=== PATIENT | female | born 1975 | race Caucasian/White ===

== ENCOUNTER 2018-10-23 08:11 | Observation (INO) | payer MEDICARE, OTHER ==
[2018-10-23] MEDS ORDERED: LIDOCAINE HCL 2% PF 100MG/5ML VIAL IJ ONE (08:48)
[2018-10-23] MEDS ORDERED: ROCURONIUM BROMIDE 10 MG/ML 5ML VIAL ONE (08:48)
[2018-10-23] MEDS ORDERED: FAMOTIDINE 20 MG/2 ML VIAL ONE ×2 (08:48→20:36)
[2018-10-23] MEDS ORDERED: PROMETHAZINE HCL 25 MG/ML VIAL ONE ×3 (08:48→20:58)
[2018-10-23] MEDS ORDERED: DEXAMETHASONE SODIUM PHOSPHATE 10 MG/ML VIAL ONE (08:48)
[2018-10-23] MEDS ORDERED: SEVOFLURANE 250 ML LIQUID IH ONE (08:48)
[2018-10-23] MEDS ORDERED: ESMOLOL HCL 100 MG/10 ML IV ONE (08:48)
[2018-10-23] MEDS ORDERED: FENTANYL CITRATE/PF 250 MCG/5 ML INJ. ONE (08:48)
[2018-10-23] MEDS ORDERED: SCOPOLAMINE HYDROBROMIDE 1.5MG/72HR PATCH TD ONE ×2 (08:48→09:19)
[2018-10-23] MEDS ORDERED: BUPIV. HCL 0.25% (2.5MG/ML)/EPI. (1:200,000) PF 30 ML VIAL IJ ONE (08:48)
[2018-10-23] MEDS ORDERED: SUGAMMADEX SODIUM 200 MG/2 ML VIAL IV ONE (08:48)
[2018-10-23] MEDS ORDERED: hydrALAZINE HCL 20 MG/1 ML ONE ×3 (08:48→16:03)
[2018-10-23] MEDS ORDERED: HYDROmorphone HCL/PF 2 MG/ML VIAL ONE ×2 (08:48→13:38)
[2018-10-23] MEDS ORDERED: LIDOCAINE HCL 1% PF 300MG/30ML VIAL ONE (08:48)
[2018-10-23] MEDS ORDERED: MIDAZOLAM HCL 2 MG/2 ML VIAL ONE (08:48)
[2018-10-23] MEDS ORDERED: LABETALOL HCL 20 MG/4 ML SYRINGE IV ONE (08:48)
[2018-10-23] MEDS ORDERED: ceFAZolin SODIUM 1 GM VIAL ONE (08:48)
[2018-10-23] MEDS ORDERED: ONDANSETRON HCL/PF 4 MG/ 2ML VIAL ONE ×4 (08:48→16:19)
[2018-10-23] MEDS ORDERED: SODIUM CHLORIDE IRRIG SOLUTION 3,000 ML IRRIG.SOLN IR ONE (08:48)
[2018-10-23] MEDS ORDERED: PROPOFOL 200 MG/20 ML VIAL IV ONE (08:48)
[2018-10-23] MEDS ORDERED: diphenhydrAMINE HCL 50 MG/ML VIAL IVP PRN (15:51)
[2018-10-23] MEDS ORDERED: MORPHINE SULFATE 10MG/0.5ML ORAL SOLN UD CUP PO PRN (15:51)
[2018-10-23] MEDS ORDERED: ONDANSETRON HCL/PF 4 MG/ 2ML VIAL IVP PRN (15:51)
[2018-10-23] MEDS ORDERED: hydrALAZINE HCL 20 MG/1 ML IVP ONE (16:02)
[2018-10-23] MEDS ORDERED: CARISOPRODOL 350 MG PO PRN (16:02)
[2018-10-23] MEDS ORDERED: 0.9 % SODIUM CHLORIDE 1,000 ML IV ONE ×2 (16:11→21:24)
[2018-10-23] MEDS: 0.9 % SODIUM CHLORIDE 1,000 ML IV SCH (16:11)
[2018-10-23] MEDS: KETOROLAC TROMETHAMINE 30 MG/1ML VIAL IVP PRN (16:18)
[2018-10-23] MEDS ORDERED: KETOROLAC TROMETHAMINE 30 MG/1ML VIAL ONE (16:19)
--- NOTE | 2018-10-23 16:26 | History and Physical Report ---
History of Present Illnes - History of Present Illness Reason for Visit: S/P Gastric Sleeve History of Present Illness: Patient is a 43-year-old female who has tried multiple diets and exercise programs with no success. She has struggled with her weight for many years but it has gotten worse due to her chronic pain and inability to work-out. Patient and surgeon decided to proceed with gastric sleeve procedure. Procedure went well- patient will be admitted and monitored s/p surgical intervention. Patient has been on a liquid diet prior to surgery so she is a risk of dehydration s/p surgery. She will be admitted for IV hydration to help hydrate patient until she is able to tolerate a sufficient oral intake, will treat pain with IV medication until patient is able to tolerate oral meds, IV antiemetics to help reduce episodes of nausea and/or vomiting. Patient will be monitored closely with blood pressures ranging 170s/120s, will give IV Hypertensive medication to get blood pressure to WNL. Pain medication will be given and see if this is cause of HTN as well. - Past Medical History Cardiac: HTN, Other (EF 55% on 08/20/18) Musculoskeletal: Chronic low back pain, Osteoarthritis (joint pain to knees, hips, and feet) Renal/: Other (PCOS, one functioning kidney) Endocrine: obesity - Past Surgical History Past Surgical History: Cholecystectomy, , Hernia Repair, Other (CTR), Tubal Ligation, Other (Back- Montoya rods) - Past Family History Mother Family History: Hyperlipidemia, Hypertension Father Family History: DM, Other (obesity) - Past Social History Smoke: No Alcohol: Rare Drugs: None Lives: With Family Domestic Violence: Negative - Health Maintenance Health Maintenance: Tetanus. denies: Influenza Vaccine Influenza Vaccine: Patient Refused Pneumonia Vaccine: No Resuscitation Status: Resusciation Status Resuscitation Status Full Code - Unable to Obtain History Unable to Obtain: No Review of Systems - Review of Systems Constitutional: Weakness Eyes: negative: pain, conjunctivae inflammation ENT: negative: Ear Pain, Nose Discharge, Throat Pain Respiratory: negative: Cough, Shortness of Breath Cardiovascular: negative: Chest Pain, Palpitations Gastrointestinal: Nausea, Abdominal Pain (S/P gastric sleeve). negative: Vomiting Genitourinary: negative: Dysuria Musculoskeletal: Back Pain (Chronic Back pain) Skin: Other (5 incision sites). negative: Rash Neurological: Weakness. negative: Confusion - Medications/Allergies Allergies/Adverse Reactions: Allergies Allergy/AdvReac Type Severity Reaction Status Date / Time codeine Allergy Verified 10/23/18 15:50 Home Medications: Home Medications Carisoprodol 350 mg PO QID PRN 10/23/18 HYDROcodone /APAP 10/325 [[place] 10/325] 1 each PO Q4-6 PRN MDD 4 10/23/18 Naproxen 500 mg PO BID 10/23/18 Oxycodone HCl [Oxycontin] 60 mg PO Q12H 10/23/18 Spironolactone 50 mg PO BID 10/23/18 Telmisartan 80 mg PO DAILY 10/23/18 amLODIPine BESYLATE [Norvasc] 2.5 - 5 mg PO 0900 10/23/18 Current Inpatient Medications: Current Inpatient Medications Amlodipine Besylate (Norvasc) 5 mg PO 0900 [facility] Cefazolin Sodium/Dextrose (Ancef 1 Gm/50 Ml-Dextrose) 1 gm IV Q8H [facility] Stop: 10/24/18 04:31 Diphenhydramine HCl (Benadryl) 25 mg IVP Q6H PRN PRN Reason: Sleeping and Itching Stop: 10/27/18 15:50 Enoxaparin Sodium (Lovenox) 40 mg SQ DAILY [facility] Stop: 11/07/18 08:59 Famotidine (Pepcid) 20 mg IVP BID [facility] Stop: 10/27/18 20:59 Hydralazine HCl (Apresoline) 10 mg IVP NOW ONE Stop: 10/23/18 16:03 Last Admin: 10/23/18 16:10 Dose: 10 mg Sodium Chloride (Normal Saline) 1,000 mls @ 150 mls/hr IV Q8H [facility] Last Admin: 10/23/18 16:11 Dose: 150 mls/hr Promethazine HCl 25 mg/ Sodium (Chloride) 51 mls @ 200 mls/hr IV Q6 PRN PRN Reason: Nausea / Vomiting Stop: 10/27/18 15:50 Ketorolac Tromethamine (Toradol) 30 mg IVP Q6 PRN PRN Reason: For Mild Pain Stop: 10/27/18 15:50 Last Admin: 10/23/18 16:18 Dose: 30 mg Miscellaneous (Carisoprodol [Carisoprodol]) 350 mg PO QID PRN PRN Reason: muscle spasm Miscellaneous (Telmisartan [Telmisartan]) 80 mg PO DAILY [place] Morphine Sulfate (Morphine Sulfate) 2 mg IVP Q2 PRN PRN Reason: MODERATE PAIN Stop: 10/27/18 15:50 Morphine Sulfate (Roxanol) 10 mg PO Q4 PRN PRN Reason: Severe Pain Stop: 10/27/18 15:50 Ondansetron HCl (Zofran) 4 mg IVP Q6H PRN PRN Reason: Nausea / Vomiting Stop: 10/27/18 15:50 Last Admin: 10/23/18 16:18 Dose: 4 mg Exam - Exam Vital Signs: Vital Signs (72 hours) 10/23/18 10/23/18 10/23/18 15:51 16:02 16:21 Temperature 97.3 F L 97.7 F 97.1 F L Pulse Rate [ 80 81 83 Right] Respiratory 18 20 20 Rate Blood Pressure 176/109 172/127 156/91 [Right Arm] O2 Sat by Pulse 95 95 97 Oximetry General: Alert, Oriented to Person, Oriented to Place, Oriented to Time, Mild distress, Morbidly Obese HEENT: PERRLA, Mouth Mucous membr. moist/Anatone, Nose Mucous membr. moist/Anatone Neck: Normal Range of Motion. No: Stridor Carotids: No bruit Lungs: Clear to auscultation, Normal air movement, Speaks full Sentences Cardiovascular: Regular rate, Normal S1, Normal S2 Peripheral Edema: None Peripheral Pulses: 2+ Abdomen: Soft, Decreased Bowel Sounds Integumentary: Warm, Dry, Pale, Other (Incision site drsg. dry and intact) Extremities: No edema, Normal pulses, No tenderness/swelling Neurological: Normal speech, Strength Equal Bilat, Normal tone, Sensation intact Psych/Mental Status: Mental status NL, Mood NL, Appropriate Affect, Intact Judgment Assessment/Plan - Assessment/Plan (1) S/P gastric surgery Status: Acute Current Visit: Yes Plan: Plan to admit for IV hydration, IV pain meds, and IV antiemetics. Lovenox to help prevent DVTs and SCD's, IS and frequent ambulation will be implemented. Start ice chips and advance diet as tolerated. (2) Morbid obesity due to excess calories Status: Acute Current Visit: Yes Plan: Patient is s/p gastric sleeve. We will assist patient with implementing gastric sleeve diet protocol starting with ice chips and clear liquids and advancing as tolerated. (3) Hypertension Status: Acute Current Visit: Yes Qualifiers: Hypertension type: essential hypertension Qualified Code(s): I10 - Essential (primary) hypertension Plan: Patient hypertensive after surgery- received IV Hydralazine 10 mg- we will continue with scheduled blood pressure medication and watch closely to not drop blood pressure to low. Will work to keep it WNL. Will check every 4 hours and PRN (4) Chronic back pain Status: Acute Current Visit: Yes Qualifiers: Back pain location: low back pain Back pain laterality: unspecified Sciatica presence: with sciatica Sciatica laterality: bilateral sciatica Qualified Code(s): M54.41 - Lumbago with sciatica, right side; M54.42 - Lumbago with sciatica, left side; G89.29 - Other chronic pain Plan: Patient on pain medication at home for chronic back pain- we will treat with pain medication- May use K-Pad if needed. Nursing will encourage patient to get up and walk and not keep laying in the bed. (5) Joint pain Status: Acute Current Visit: Yes Qualifiers: Joint pain location: unspecified Qualified Code(s): M25.50 - Pain in unspecified joint Comment: bilateral knees, hips, feet Plan: Nursing will encourage patient to get up out of bed and ambulate- getting out of bed will help decrease stiffness. VTE Assessment - RISK FACTOR SCORE VTE RISK FACTOR SCORES: AGE 40-60 YEARS, OBESITY, MAJOR SURGERY/ANESTHESIA TIME > 1 HOUR - RISK VTE HIGH RISK: SCORE OF 3-4 (RISK PROXIMAL DVT 4-8%) PROPHYLAXIS NEEDED (Lovenox daily, frequent ambulation, SCDs while in bed)
[2018-10-23 16:50] VITALS: BMI 45.6
[2018-10-23] MEDS ORDERED: CEFAZOLIN SODIUM/DEXTROSE,ISO 50 ML IV ONE (20:33)
[2018-10-23] MEDS ORDERED: MORPHINE SULFATE 4 MG/ML VIAL ONE (20:59)
[2018-10-23] MEDS ORDERED: 0.9 % SODIUM CHLORIDE 100 ML IV ONE (20:59)
[2018-10-23] MEDS: MORPHINE SULFATE 4 MG/ML VIAL IVP PRN (21:05)
[2018-10-23] MEDS: PROMETHAZINE HCL 25 MG in 0.9 % SODIUM CHLORIDE 50 ML IV PRN (21:07)
[2018-10-23] MEDS: CEFAZOLIN SODIUM/DEXTROSE,ISO 1 GM/50 ML PIGGYBACK IV SCH (21:08)
[2018-10-23] MEDS: FAMOTIDINE 20 MG/2 ML VIAL IVP SCH (21:09)
[2018-10-24] MEDS ORDERED: KETOROLAC TROMETHAMINE 30 MG/1ML VIAL ONE (00:26)
[2018-10-24] MEDS: KETOROLAC TROMETHAMINE 30 MG/1ML VIAL IVP PRN (00:30)
[2018-10-24] MEDS: 0.9 % SODIUM CHLORIDE 1,000 ML IV SCH (01:57)
[2018-10-24] MEDS ORDERED: MORPHINE SULFATE 4 MG/ML VIAL ONE (03:37)
[2018-10-24] MEDS ORDERED: 0.9 % SODIUM CHLORIDE 50 ML IV ONE (03:40)
[2018-10-24] MEDS ORDERED: PROMETHAZINE HCL 25 MG/ML VIAL ONE (03:40)
[2018-10-24] MEDS ORDERED: CEFAZOLIN SODIUM/DEXTROSE,ISO 50 ML IV ONE (03:42)
[2018-10-24] MEDS: PROMETHAZINE HCL 25 MG in 0.9 % SODIUM CHLORIDE 50 ML IV PRN (03:45)
[2018-10-24] MEDS: MORPHINE SULFATE 4 MG/ML VIAL IVP PRN (03:46)
[2018-10-24] MEDS: CEFAZOLIN SODIUM/DEXTROSE,ISO 1 GM/50 ML PIGGYBACK IV SCH (03:47)
[2018-10-24] MEDS ORDERED: 0.9 % SODIUM CHLORIDE 1,000 ML IV ONE (04:01)
--- NOTE | 2018-10-24 07:47 | Discharge Summary ---
Discharge Summary - Discharge Sumary History of Present Illness: Patient is a 43-year-old female who has tried multiple diets and exercise programs with no success. She has struggled with her weight for many years but it has gotten worse due to her chronic pain and inability to work-out. Patient and surgeon decided to proceed with gastric sleeve procedure. Procedure went well- patient will be admitted and monitored s/p surgical intervention. Patient has been on a liquid diet prior to surgery so she is a risk of dehydration s/p surgery. She will be admitted for IV hydration to help hydrate patient until she is able to tolerate a sufficient oral intake, will treat pain with IV medication until patient is able to tolerate oral meds, IV antiemetics to help reduce episodes of nausea and/or vomiting. Patient will be monitored closely with blood pressures ranging 170s/120s, will give IV Hypertensive medication to get blood pressure to WNL. Pain medication will be given and see if this is cause of HTN as well. Condition at Discharge: Stable Home Medications: Ambulatory Orders Medication Instructions Recorded Carisoprodol 350 mg PO QID PRN 10/23/18 HYDROcodone /APAP 10/325 [[place] 1 each PO Q4-6 PRN MDD 4 10/23/18 10/325] Naproxen 500 mg PO BID 10/23/18 Oxycodone HCl [Oxycontin] 60 mg PO Q12H 10/23/18 Spironolactone 50 mg PO BID 10/23/18 Telmisartan 80 mg PO DAILY 10/23/18 amLODIPine BESYLATE [Norvasc] 2.5 - 5 mg PO 0900 10/23/18 Consultations this Visit: None Procedures this Visit: Other (S/P Gastric Sleeve) Allergies/Adverse Reactions: Allergies Allergy/AdvReac Type Severity Reaction Status Date / Time codeine Allergy Verified 10/23/18 15:50 Discharge Summary: Patient is a 43-year-old female that underwent the gastric sleeve procedure and has done well. She has been very cooperative with her care by ambulating frequently, using her incentive spirometer, and wearing her SCDs while in bed. She has been compliant with her diet during hospitalization. She is having minimal discomfort at this time and moderate nausea without vomiting, she has been passing gas and belching. She is aware of discharge instructions and what she can and cannot do post surgical- she is aware of the strict diet she must follow to decrease discomfort and have success after procedure. She has family support and mother will be taking her home- medications written by surgeon given to patient. Hospital Course: Patient received pain medications, antiemetics, and IVF and was transitioned to oral. She has been up ambulating and using incentive spirometer. - Final Diagnosis (1) S/P gastric surgery Problems: Incision without redness or drainage, positive bowel sounds, minimal discomfort, belching and flatus, no extremity pain or edema Right or Left: Right (2) Morbid obesity due to excess calories Problems: Following strict gastric sleeve diet Right or Left: Right (3) Hypertension Problems: Will continue blood pressure medications Right or Left: Right (4) Chronic back pain Problems: Stable with home medications Right or Left: Right (5) Joint pain Problems: Stable on home medications Right or Left: Right
[2018-10-24] MEDS ORDERED: ONDANSETRON HCL/PF 4 MG/ 2ML VIAL ONE (07:55)
[2018-10-24 07:58] VITALS: BP 140/75
[2018-10-24] MEDS ORDERED: MORPHINE SULFATE 10MG/0.5ML ORAL SOLN UD CUP ONE (08:07)
[2018-10-24] MEDS ORDERED: ENOXAPARIN SODIUM 40 MG/0.4 ML DISP.SYRIN SQ ONE (08:30)
[2018-10-24] MEDS ORDERED: amLODIPine BESYLATE 5 MG TABLET ONE (08:30)
[2018-10-24] MEDS ORDERED: FAMOTIDINE 20 MG/2 ML VIAL ONE (08:34)
[2018-10-24] MEDS: FAMOTIDINE 20 MG/2 ML VIAL IVP SCH (08:36)
[2018-10-24] MEDS ORDERED: amLODIPine BESYLATE 5 MG TABLET PO SCH (09:00)
[2018-10-24] MEDS ORDERED: TELMISARTAN 80 MG PO SCH (09:00)
[2018-10-24] MEDS ORDERED: ENOXAPARIN SODIUM 40 MG/0.4 ML DISP.SYRIN SQ SCH (09:00)
--- NOTE | 2018-10-26 09:34 | Operative Note ---
PREOPERATIVE DIAGNOSIS: 1. Morbid obesity. 2. Hypertension. 3. Polycystic ovarian syndrome. POSTOPERATIVE DIAGNOSIS: 1. Morbid obesity. 2. Hypertension. 3. Polycystic ovarian syndrome. PROCEDURES PERFORMED: 1. Laparoscopic vertical sleeve gastrectomy. 2. Upper gastrointestinal endoscopy. SURGEON: Archie Orourke M.D. INDICATIONS FOR PROCEDURE: Ms. Hale is a 43-year-old female who presented with features of morbid obesity and the above-listed comorbidities. She was noted to have a weight of 277 pounds with a BMI of 47.9. The patient was advised laparoscopic vertical sleeve gastrectomy and possible hiatal hernia repair. The patient showed understanding and agreed to proceed. DESCRIPTION OF PROCEDURE: After explaining to the patient in detail and informed consent was obtained, the patient was identified in the preoperative holding area. The patient was transferred to the operating room and was placed in supine position. Sequential compressive devices were placed for DVT prophylaxis. Preoperative antibiotics were given. After induction of anesthesia, the abdomen was prepped and draped in a sterile fashion. Through a left upper quadrant 1-cm incision, and using Optiview technique, the peritoneal cavity was entered and pneumoperitoneum was created. Thereafter, under direct vision, another 5-mm trocar was placed in the left midabdomen and another 15-mm trocar was placed in the right midabdomen. Through a 1-cm incision in the right subcostal region, another 5-mm trocar was placed. Through a 1-cm incision in the epigastrium, a Taniya retractor was introduced and the left lobe of the liver was retracted. On initial inspection, the patient was noted to have no evidence of hiatal hernia. I took down the gastroepiploic vessels using a LigaSure. This was continued superiorly. The short gastric vessels were taken down. The gastrophrenic ligament was divided and the Angle of His was mobilized. The posterior attachments of the stomach on the pancreas were released. Distally, the gastroepiploic vessels were taken down up to about 4 cm proximal to the pylorus. At this point, a #38 [place] Hurst Bougie was introduced into the stomach and was placed along the lesser curve. The stomach was then divided in a vertical fashion with multiple Endo MISTY [employer] Black Load Staplers. The first firing was directed outwards towards the greater curvature. Subsequent firings were directed towards the Angle of His to create a loose sleeve around the #38 Syrian bougie. The bougie was then removed and an upper GI endoscopy was performed at this point. The scope was introduced into the esophagus and was gradually advanced into the stomach. The GE junction appeared normal. The sleeve size appeared normal. No evidence of any active bleeding was noted. The stomach was insufflated with air and irrigation of fluid along the staple line revealed no evidence of air leak. The stomach was then suctioned out and the scope was removed. Absolute hemostasis was ensured. Thorough saline irrigation was given. The Taniya retractor was removed. Approximately 10 mL of a lidocaine- Marcaine mix was instilled under the left hemidiaphragm. The sleeve gastrectomy specimen was removed. The abdomen was then deflated. The incisions were closed with 4-0 Monocryl. Dermabond was applied. Approximately 10 mL of a lidocaine- Marcaine mix was injected into all the incisions. The patient was awakened from anesthesia and was transferred to the recovery room in stable condition. ESTIMATED BLOOD LOSS: Approximately 50 mL. CONDITION OF THE PATIENT: Stable. FLUIDS GIVEN: Per Anesthesia note. SPECIMEN(S) SENT: Sleeve gastrectomy specimen. COMPLICATIONS: None. ANESTHESIA: General. Archie Orourke M.D. VANI/jocelyne @1325 @0830 HARPAL
== END 2018-10-24 09:20 | disposition home or self-care (01) ==
LOC: OPSURG 08:11 → INTOOBSV 15:44 → SOUTH 15:44
PROVIDERS: ADMIT Nurse Practitioner Family; ATTEND Nurse Practitioner Family
DX: E66.01 Morbid (severe) obesity due to excess calories (principal); Z68.42 Body mass index [BMI] 45.0-49.9, adult; I10 Essential (primary) hypertension; E28.2 Polycystic ovarian syndrome; R11.2 Nausea with vomiting, unspecified; G89.18 Other acute postprocedural pain; M54.5 Low back pain; M25.50 Pain in unspecified joint
CPT/HCPCS: 43235; 43775; A9270; G0378; J0360; J0690; J1170; J1650; J1885; J2001; J2250; J2270; J2405; J2550; J2704; J7030; 99217; 99218; G0379